=== PATIENT | male | born 1945 | race Caucasian/White ===

== ENCOUNTER 2018-12-13 12:43 | Emergency (ER) | payer SELFPAY ==
[~2018-12-13] VITALS: Ht 172.7 cm; Wt 65.8 kg
[2018-12-13] MEDS ORDERED: COMBIVENT RESPIM4 GM INH (12:55)
[2018-12-13] MEDS ORDERED: ALLO300 PO (12:55)
[2018-12-13] MEDS ORDERED: Calcium Carbon650 MG PO (12:56)
[2018-12-13] MEDS ORDERED: Cardura8 MG PO (12:56)
[2018-12-13] MEDS ORDERED: OXYC5 PO (12:57)
[2018-12-13] MEDS ORDERED: GEMF600 PO (12:57)
[2018-12-13] MEDS ORDERED: OMEPRAZOLE20 MG PO (12:57)
[2018-12-13] MEDS ORDERED: METO25ER PO (12:57)
[2018-12-13] MEDS ORDERED: SERT25 PO (12:58)
[2018-12-13] MEDS ORDERED: Zocor20 MG PO (12:58)
[2018-12-13] MEDS ORDERED: TRAZ100 PO (12:58)
[2018-12-13] MEDS ORDERED: Glucosamine-Ch480 ML PO (12:59)
[2018-12-13] MEDS ORDERED: THERA1 EACH PO (13:00)
[2018-12-13] MEDS ORDERED: ERGO400 PO (13:00)
[2018-12-13] MEDS ORDERED: Fish Oil Conc1000 MG PO (13:01)
[2018-12-13 14:25] LABS: BASOPHILS ABSOLUTE AUTO 0.03 K/mm3 (0.00-0.23); BASOPHILS PERCENT AUTO 1 % (0-2); EOSINOPHILS ABSOLUTE AUTO 0.07 K/mm3 (0.00-0.68); EOSINOPHILS PERCENT AUTO 1 % (0-6); Hematocrit 41.9 % (37.0-53.0); Hemoglobin 14.3 g/dL (13.5-17.5); IMMATURE GRAN ABSOLUTE AUTO 0.02 K/mm3 (0.00-0.10); IMMATURE GRAN PERCENT AUTO 0 % (0-1); LYMPHOCYTES PERCENT AUTO 30 % (21-46); MONOCYTES ABSOLUTE AUTO 0.49 K/mm3 (0.16-1.47); MONOCYTES PERCENT AUTO 9 % (4-13); Mean Corpuscular HGB 38.3 pg (26.0-34.0); Mean Corpuscular HGB Conc 34.1 g/dL (31.5-36.5); Mean Corpuscular Volume 112 fL (80-100); NEUTROPHILS ABSOLUTE AUTO 3.38 K/mm3 (1.96-9.15); NEUTROPHILS PERCENT AUTO 59 % (41-73); Platelet Count 249 K/mm3 (150-400); RDW Coefficient Variation 14.6 % (11.7-14.2); RDW Standard Deviation 61.6 fL (35.1-46.3); Red Blood Cell Count 3.73 M/mm3 (4.30-5.90); White Blood Cell Count 5.69 K/mm3 (4.00-11.30)
[2018-12-13 14:40] LABS: Alanine Aminotransfer (ALT/SGP 143 U/L (12-78); Albumin, Blood 3.5 g/dL (3.4-5.0); Albumin/Globulin Ratio 1.1 (0.8-1.8); Alk Phos 240 U/L (50-136); Anion Gap 10 mmol/L (6-16); Aspartate Aminotrans (AST/SGOT 221 U/L (12-37); Bilirubin, Total 0.6 mg/dL (0.1-1.0); Blood Urea Nitrogen 8 mg/dL (8-24); Bun/Creatinine Ratio 10.3 (12.0-20.0); CO2, Blood 26 mmol/L (21-32); Calcium, Blood 8.3 mg/dL (8.5-10.1); Chloride, Blood 102 mmol/L (98-108); Creatinine, Blood 0.78 mg/dL (0.60-1.20); Ethanol (Alcohol), Blood, Med 75 mg/dL; Globulin, Blood 3.2 g/dL (2.2-4.0); Glomerular Filtration Rate >60 (60-); Glucose, Blood 88 mg/dL (70-99); Potassium, Blood 3.9 mmol/L (3.5-5.5); Sodium, Blood 138 mmol/L (136-145); Total Protein, Blood 6.7 g/dL (6.4-8.2)
[2018-12-13] MEDS ORDERED: COMPAZINE10 MG PO (15:01)
[2018-12-13] MEDS ORDERED: OMEP20ER PO (15:01)
== END 2018-12-13 15:22 | disposition home or self-care (01) ==
LOC: ER 12:43
PROVIDERS: Emergency Medicine
DX: K70.10 Alcoholic hepatitis without ascites (principal); K29.20 Alcoholic gastritis without bleeding; R21 Rash and other nonspecific skin eruption; I10 Essential (primary) hypertension; E78.5 Hyperlipidemia, unspecified; F32.9 Major depressive disorder, single episode, unspecified
CPT/HCPCS: 80053; 82272; 83690; 85025; 99284; G0480